=== PATIENT | female | born 1970 | race Caucasian/White ===

== ENCOUNTER 2019-05-14 14:42 | Emergency (ER) | payer MEDICARE ==
[~2019-05-14] VITALS: Ht 162.6 cm; Wt 57.0 kg
[2019-05-14 15:57] LABS: BASOPHILS # (AUTO) 0.04 x10^3/uL (0-0.1); BASOPHILS % (AUTO) 1 % (0-1); EOSINOPHILS # (AUTO) 0.21 x10^3/uL (0-0.4); EOSINOPHILS % (AUTO) 4 % (1-7); LYMPHOCYTES # (AUTO) 2.16 x10^3/uL (1-3.4); LYMPHOCYTES % (AUTO) 36 % (22-44); MD NO; MEAN CORPUSCULAR HEMOGLOBIN 31.7 pg (27.0-34.8); MEAN CORPUSCULAR HGB CONC 32.8 g/dL (32.4-35.8); MEAN CORPUSCULAR VOLUME 96.5 fL (80-100); MEAN PLATELET VOLUME 6.7 fL (7.4-10.4); MONOCYTES # (AUTO) 0.73 x10^3/uL (0.2-0.8); MONOCYTES % (AUTO) 12 % (2-9); NEUTROPHILS # (AUTO) 2.85 x10^3/uL (1.8-6.8); NEUTROPHILS % (AUTO) 48 % (42-75); PLATELET COUNT 278 x10^3/uL (130-400); RED BLOOD COUNT 3.69 x10^6/uL (3.82-5.3)
[2019-05-14 16:11] LABS: ALANINE AMINOTRANSFERASE 68 U/L (12-78); ALBUMIN 4.2 g/dL (3.4-5.0); ANION GAP 7 mmol/L (5-15); CALCIUM 9.1 mg/dL (8.5-10.1); CHLORIDE 108 mmol/L (98-107); CREATININE 0.64 mg/dL (0.55-1.02)
[2019-05-14 16:16] LABS: ALKALINE PHOSPHATASE 224 U/L (45-117); BILIRUBIN,TOTAL 0.3 mg/dL (0.2-1.0); TOTAL PROTEIN 8.6 g/dL (6.4-8.2)
[2019-05-14 17:18] LABS: MICROSCOPIC NOT IND
--- NOTE | 2019-05-14 17:21 | NUR ---
TASK RN: PT AMBULATED STEADILY TO ROOM WITH RN AND MOTHER. PT REPORTS R FLANK PAIN X SEVERAL DAYS W/ BLOOD IN STOOL THAT HAS RESOVLED. HX OF KIDNEY FAILURE REQUIRING INPATIENT DIALYSIS. NO CURRENTLY UNDERGOING DIALYSIS REGULARLY. NAD NOTED. PT DENIES PAIN CURRENTLY. STATES THAT SHE HAS BEEN "TAKING AMOXICILLIN FROM [place] JUST BECAUSE IT WAS OBVIOUS THAT SOMETHING WAS WRONG". LABS/UA COLLECTED WHILE IN LOBBY. REPORT TO PRIMARY RNJANETTE.
[2019-05-14 17:26] LABS: CULTURE INDICATED? NO
[2019-05-14] MEDS ORDERED: SODIUM CHLORIDE 0.9% 1,000ML IVBOLUS ONE (18:00)
[2019-05-14] MEDS ORDERED: SODIUM CHLORIDE FLUSH 10ML SYR IVF ONE (18:00)
--- NOTE | 2019-05-14 18:07 | NUR ---
IV PLACED, FLUIDS RUNNING. PT TAKEN TO US
[2019-05-14 18:09] LABS: INTERNATIONAL NORMALIZED RATIO 0.99 (0.93-1.1); PROTHROMBIN TIME 10.5 Seconds (9.6-11.5)
--- NOTE | 2019-05-14 18:42 | NUR ---
PT BACK FROM US. STATES HAVING INCREASED PAIN. LAB AT BEDSIDE FOR ADDITIONAL DRAW. WILL UPDATE MD. CALL LIGHT WITHIN REACH
--- NOTE | 2019-05-14 19:11 | NUR ---
ALL RESULTS BACK AT THIS TIME, CHART UP FOR RECHECK
--- NOTE | 2019-05-14 19:19 | NUR ---
REPORT GIVEN TO NOE PABON
--- NOTE | 2019-05-14 19:33 | NUR ---
PROVIDER AT BEDSIDE.
[2019-05-14 20:05] VITALS: BP 154/97
--- NOTE | 2019-05-14 20:06 | NUR ---
Patient/Caregiver given discharge instructions and they have confirmed that they understand the instructions. Patient ambulatory with steady gait.
== END 2019-05-14 20:51 | disposition home or self-care (01) ==
LOC: ED 20:11
DX: R10.11 Right upper quadrant pain (principal); R00.0 Tachycardia, unspecified; R74.9 Abnormal serum enzyme level, unspecified; F17.200 Nicotine dependence, unspecified, uncomplicated
CPT/HCPCS: 36415; 76700; 80053; 81003; 83605; 84443; 84703; 85025; 85610; 93005; 99284; J7030